=== PATIENT | male | born 1975 | race Caucasian/White ===

== ENCOUNTER 2018-11-23 15:00 | Inpatient (IN) | payer OTHER, SELFPAY ==
[2018-11-23] MEDS ORDERED: Ondansetron ODT 4 MG TAB PO PRN (22:19)
[2018-11-23] MEDS ORDERED: Ondansetron PF 4 MG/2 ML Vial IVP PRN (22:19)
[2018-11-23] MEDS ORDERED: Acetaminophen 325 MG TAB PO PRN (22:19)
[2018-11-23] MEDS ORDERED: Acetaminophen 650 MG Suppository PR PRN (22:19)
--- NOTE | 2018-11-23 23:20 | ULT ---
EXAM: Right lower extremity venous ultrasound HISTORY: Right lower extremity pain and edema for one week COMPARISON: None TECHNIQUE: Multiplanar grayscale and color Doppler images were obtained in a right lower extremity ve nous ultrasound. Spectral analysis of the Doppler waveforms were performed. FINDINGS: The common femoral vein, profunda femoral vein, superficial femoral vein, and popliteal vei n are normal in appearance without visible thrombus. These vessels demonstrate normal compression, flow, and augmentation. The posterior tibial vein and greater saphenous vein are patent without evidence of thrombus. Multiple prominent lymph nodes are seen in the right inguinal region. IMPRESSION: No evidence of DVT.
[2018-11-23] MEDS: Ketorolac Tromethamine 30 MG/ML VIAL IVP PRN (23:24)
[2018-11-23 23:38] VITALS: BMI 33.7
[2018-11-24] MEDS ORDERED: Morphine 2 MG/ML SYRINGE SLOW IVP PRN (00:07)
[2018-11-24] MEDS ORDERED: cefTRIAXone\\ROCEPHIN 1 GM in Sodium Chloride 0.9% 100 ML IVPB SCH (02:00)
--- NOTE | 2018-11-24 02:09 | HP ---
PRIMARY CARE PHYSICIAN: The patient is in detention. CODE STATUS: Full code. TIME OF EVALUATION: 10:25 p.m. CHIEF COMPLAINT: Right leg redness. HISTORY OF PRESENT ILLNESS: This is a 43-year-old male patient. The patient is in detention, came to the hospital after having been transferred from . The patient has right lower extremity redness that is severe, has been getting worse for the past week with decreased range of motion and some blisters. The symptoms have been gradually getting worse. REVIEW OF SYSTEMS: All other systems were reviewed and negative except for the findings mentioned above. PAST MEDICAL HISTORY: Reportedly negative. PAST SURGICAL HISTORY: No significant major surgeries related except for the left shoulder surgery. FAMILY HISTORY: Reviewed and noncontributory for current presentation. PHYSICAL EXAMINATION: VITAL SIGNS: On presentation; the patient had heart rate of 99, respiratory rate was 20, blood pressure 121/74, temperature 99.7, and pain 10/10. GENERAL APPEARANCE: The patient is alert and oriented, not in acute distress. HEENT: Eyes, normal conjunctivae. Moist oral mucosa. Anicteric. No JVD. RESPIRATORY: Bilateral air entry. No rales. No wheezes. Symmetric expansion. CARDIOVASCULAR: Normal rate. Regular rhythm. No murmurs. No gallop. No edema. ABDOMEN: Soft. Normal bowel sounds. MUSCULOSKELETAL: Baseline range of motion and strength except for the right lower extremity. The patient has significant redness, tumefaction, decreasing range of motion due to pain, and increasing local temperature. NEURO: No evidence of any new focal weakness. Cranial nerves seem to be intact. PSYCH: The patient is in good mood. No anxiety. Optimal judgment. DIAGNOSTIC DATA: DVT study was done. There is no DVT in the right lower extremity. LABORATORY DATA: The labs were done prior to transfer, but the records sent , so this will need to be followed. We will repeat his labs here in the hospital. ASSESSMENT AND PLAN: The patient was placed in the hospital with following medical problems; 1. Right lower extremity cellulitis and has significant formation of blisters in the area with significant local symptoms, decreased range of motion, redness, and tumefaction. The patient has been started on broad-spectrum antibiotics including coverage for gram negative anaerobes and gram positive. Culture has been sent, we will follow up cultures. We will monitor. If not improving, might need Dr. Morgan for assistance with outpatient. As per sign-out report, the patient has CAT scan done prior to transfer that showed no specific deep tissue infection as of now. 2. Severe pain, needing opioid medication for optimal control. This placed the patient at high risk for complication for treatment. 3. Deep venous thrombosis prophylaxis. Job ID: [id number]
[2018-11-24] MEDS ORDERED: HYDROcodone/Acetaminophen 5/325 mg Tablet PO PRN (02:23)
[2018-11-24] MEDS: Clindamycin/D5W 600 MG in Premix Bag 1 BAG IVPB SCH ×4 (02:49→21:26)
[2018-11-24] MEDS: HYDROcodone/Acetaminophen 5/325 mg Tablet PO PRN ×6 (03:07→23:51)
[2018-11-24 04:46] LABS: #Basophils 0.1 thou/uL (0.0-0.2); #Eosinphils 0.5 thou/uL (0.0-0.7); #Lymphocytes 3.1 thou/uL (1.20-3.40); #Monocytes 2.1 thou/uL (0.11-0.59); #Neutrophils 9.7 thou/uL (1.40-6.50); %Basophils 0.8 % (0.0-1.0); %Monocytes 13.5 % (0.0-10.0); %Neutrophils 62.7 % (42.0-75.0); Hemoglobin 11.8 g/dL (14.0-18.0); Mean Corpuscular HGB CONC 34.4 g/dL (32.0-36.0); Mean Corpuscular Hemoglobin 32.3 pg (27.0-31.0); Mean Corpuscular Volume 93.9 fL (78.0-98.0); Mean Platelet Volume 6.2 fL (7.4-10.4); Platelet Count 312 thou/uL (130-400); RBC Distribution Width 12.1 % (11.5-14.5); Red Blood Cell (RBC) Count 3.63 mill/uL (4.70-6.10); White Blood Cell (WBC) Count 15.5 thou/uL (4.8-10.8)
[2018-11-24 05:05] LABS: Anion Gap 13 mmol/L (10-20); BUN (Urea Nitrogen) 18 mg/dL (8.9-20.6); Calc. Creatinine Clearance 132 mL/min (70-130); Calcium 8.9 mg/dL (7.8-10.44); Carbon Dioxide 25 mmol/L (22-29); Chloride 103 mmol/L (98-107); Estimated GFR-MDRD 83; Glucose 102 mg/dL (70-105); Potassium 4.4 mmol/L (3.5-5.1); Sodium 137 mmol/L (136-145)
[2018-11-24] MEDS: Vancomycin HCl 1.5 GM in Sodium Chloride 0.9% 250 ML 300 ML IVPB SCH ×2 (05:15→16:27)
[2018-11-24] MEDS ORDERED: Piperacillin/Tazobactam 4.5 GM in Sodium Chloride 0.9% 100 ML IVPB SCH (06:00)
[2018-11-24] MEDS ORDERED: Clindamycin/D5W 600 MG in Premix Bag 1 BAG IVPB SCH (06:00)
[2018-11-24] MEDS: Enoxaparin Sodium 40 MG/0.4 ML SYRINGE SC SCH (08:15)
[2018-11-24] MEDS ORDERED: Vancomycin HCl 1 GM in Premix Bag 1 BAG IVPB SCH (09:00)
--- NOTE | 2018-11-24 14:35 | PDOC.HOSPP ---
- Subjective Encounter Date: 11/24/18 Encounter Time: 14:15 Subjective: f/u for RLE cellulitis on Vanc/Rocephin/Clindamycin with RLE pain and swelling. No prior hx of similar events. No fever or chills. Receiving Morphine Sulfate, Toradol and [place]. - Objective Vital Signs & Weight: Vital Signs (12 hours) Temp Pulse Resp BP Pulse Ox 11/24/18 10:51 98.1 F 72 14 102/64 95 11/24/18 07:26 98.2 F 78 16 106/62 95 11/24/18 03:10 97.8 F 70 16 101/65 94 L Weight Weight 208 lb 14.4 oz I&O: 11/23/18 11/24/18 11/25/18 06:59 06:59 06:59 Intake Total 950 Output Total 425 Balance 525 Result Diagrams: 11/24/18 04:28 11/24/18 04:28 Radiology Reviewed by me: Yes (RLE doppler - negative for DVT) Hospitalist ROS - Medication Medications: Active Medications Generic Name Dose Route Start Last Admin Trade Name Freq PRN Reason Stop Dose Admin Hydrocodone Bitart/Acetaminophen 2 tab 11/24/18 02:24 11/24/18 12:19 [place] 5/325 PO 2 tab Q4H PRN Administration Moderate to Severe Pain (6-10) Enoxaparin Sodium 40 mg 11/24/18 09:00 11/24/18 08:15 Lovenox SC 40 mg 0900 PAYAL Administration Vancomycin HCl 1.5 gm/ Sodium 300 mls @ 200 mls/hr 11/24/18 04:00 11/24/18 05 :15 Chloride IVPB 300 mls 0400,1600 PAYAL Administration Clindamycin Phosphate/Dextrose 50 mls @ 100 mls/hr 11/24/18 02:00 11/24/18 10 :11 600 mg/ Device IVPB 50 mls 0200,1000,1800 PAYAL Administration Ketorolac Tromethamine 30 mg 11/23/18 22:48 11/23/18 23:24 Toradol IVP 11/28/18 22:49 30 mg Q6H PRN Administration Pain - Exam General Appearance: NAD, awake alert Eye: PERRL, anicteric sclera ENT: normocephalic atraumatic, no oropharyngeal lesions Neck: supple, symmetric, no JVD, no thyromegaly, no lymphadenopathy Heart: RRR, no murmur, no gallops, no rubs, normal peripheral pulses Respiratory: CTAB, no wheezes, no rales, no ronchi, normal chest expansion Gastrointestinal: soft, non-tender, non-distended, normal bowel sounds, no palpable masses Extremities - other findings: RLE erythema from groin to ankle, deep erythema proximal calf and popliteal Skin - other findings: blistering and skin changes noted on calf Neurological: cranial nerve grossly intact, no focal deficits, no new deficit Musculoskeletal: normal tone, normal strength Psychiatric: normal affect, A&O x 3 Hosp A/P (1) Cellulitis of right lower extremity Code(s): L03.115 - CELLULITIS OF RIGHT LOWER LIMB Status: Acute Plan: Continue Clindamycin/Rocephin/Vancomycin, serial exams, consider surgical evaluation (2) Normocytic anemia Code(s): D64.9 - ANEMIA, UNSPECIFIED Status: Acute - Plan continue antibiotics, PT/OT, [employer], out of bed/ambulate Stable currently Continue Rocephin/Vancomycin/Clindamycin Increase Morphine Sulfate 4mg IV q3h prn Continue Toradol 30mg IV q6h Consult ID for any further recommendations AM lab: BMP, CBC
[2018-11-24] MEDS: Senokot S 8.6-50 MG TAB PO SCH (20:51)
[2018-11-24] MEDS: Morphine 4 MG/ML VIAL SLOW IVP PRN (21:24)
[2018-11-25] MEDS: Morphine 4 MG/ML VIAL SLOW IVP PRN ×4 (00:49→20:30)
--- NOTE | 2018-11-25 00:59 | CON ---
DATE OF CONSULTATION: 11/24/2018 REASON FOR CONSULTATION: Cellulitis. HISTORY OF PRESENT ILLNESS: A 43-year-old first visit to this hospital, who is an inmate at [facility] with history of chronic hepatitis C, not yet treated and new onset of what he describes is little pimples that he scratches. He developed recently progressively worsening inflammatory process in right lower extremity, which started right close to the popliteal fossa, right side and extended to the thigh and the calf skin area. He was treated for 2 days in [place] and was transferred over here. He is on broad-spectrum coverage and still quite inflamed and painful. Some headaches. No visual symptoms, sore throat, odynophagia, or dysphagia. No cough or sputum production. No chest pain. No abdominal pain. No genitourinary symptoms. No diarrhea. PAST MEDICAL HISTORY: Chronic hepatitis C, not yet treated. PAST SURGICAL HISTORY: Left shoulder arthroscopy. FAMILY HISTORY: Noncontributory. ALLERGIES: PENICILLINS WITH RASH. SOCIAL HISTORY: He is an inmate at [facility] and has a history of smoking in the past. Never used drugs intravenously reportedly. PHYSICAL EXAMINATION: VITAL SIGNS: Temperature is within normal limits. BP 109/68, pulse 87, respirations 16, and O2 saturation 95. SKIN: Shows extensive area of erythema in a circumferential distribution extending from the proximal thigh all the way to the distal calf, right side. Most of the inflammatory process is centered around the popliteal fossa and calf region. There is early blistering and exfoliation of the area with a little bit of yellow exudate noted. No necrosis noted. No purulent exudate noted. No lymphadenopathy. He has multiple tattoos in upper and lower extremities. CHEST: Ocular movements conjugate. Oral cavity normal. Teeth in good shape. NECK: Supple. No jugular venous distention. LUNGS: Symmetric. Clear breath sounds. HEART: S1 and S2, regular rate. No S3 or S4. No murmurs. ABDOMEN: Soft, not distended or tender. No ascites. No bladder distention. No genital abnormalities. MUSCULOSKELETAL: No joint inflammatory activity. Pulses are 2+ in dorsalis pedis. NEUROLOGIC: Nonfocal. LABORATORY DATA: White cell count 15,000, hemoglobin 11, platelets 312. Chemistry was fairly normal. We have submitted a swab for culture from open lesions. He had a duplex ultrasound in lower extremities, which was negative. ASSESSMENT: Acute cellulitis right lower extremity with early blistering and history of chronic hepatitis C untreated. DISCUSSION: Most likely scenario is beta-hemolytic streptococcal cellulitis, group A, B, C or G. Staphylococcus aureus cellulitis including MRSA is not ruled out. GNR cellulitis is more frequent in pts with chronic liver disease but he does not appear to have cirrhosis. At this point, he is currently on Rocephin and vancomycin. We will add clindamycin and monitor clinical progress. Job ID: [id number] [facility]
[2018-11-25] MEDS: cefTRIAXone\\ROCEPHIN 2 GM in Sodium Chloride 0.9% 100 ML IVPB SCH (02:36)
[2018-11-25] MEDS: Ketorolac Tromethamine 30 MG/ML VIAL IVP PRN ×2 (02:46→20:28)
[2018-11-25 03:48] LABS: Band 18 % (5-11); Eosinophils 2 % (0-10); Hemoglobin 12.3 g/dL (14.0-18.0); Lymphocytes 13 % (21-51); MDiff Complete? YES; Mean Corpuscular Hemoglobin 31.8 pg (27.0-31.0); Mean Corpuscular Volume 93.5 fL (78.0-98.0); Metamyelocyte 4 % (0-0); Monocytes 10 % (0-10); Myelocyte 1 % (0-0); Neutrophil 52 % (42-75); Platelet Count 292 thou/uL (130-400); Platelet Morphology Comment Appears Adequate; Red Blood Cell (RBC) Count 3.86 mill/uL (4.70-6.10); White Blood Cell (WBC) Count 13.3 thou/uL (4.8-10.8)
[2018-11-25 03:54] LABS: Vancomycin, Trough 9.8 ug/mL
[2018-11-25 03:55] LABS: Anion Gap 12 mmol/L (10-20); BUN (Urea Nitrogen) 18 mg/dL (8.9-20.6); Calc. Creatinine Clearance 151 mL/min (70-130); Calcium 8.8 mg/dL (7.8-10.44); Carbon Dioxide 23 mmol/L (22-29); Chloride 104 mmol/L (98-107); Estimated GFR-MDRD Greater than 90; Glucose 96 mg/dL (70-105); Potassium 4.1 mmol/L (3.5-5.1); Sodium 135 mmol/L (136-145)
[2018-11-25] MEDS: Clindamycin/D5W 600 MG in Premix Bag 1 BAG IVPB SCH ×4 (03:57→23:02)
[2018-11-25] MEDS: HYDROcodone/Acetaminophen 5/325 mg Tablet PO PRN ×5 (04:07→20:24)
[2018-11-25] MEDS: Vancomycin HCl 1.5 GM in Sodium Chloride 0.9% 250 ML 300 ML IVPB SCH ×5 (04:17→20:31)
[2018-11-25] MEDS: Senokot S 8.6-50 MG TAB PO SCH ×2 (08:47→20:23)
[2018-11-25] MEDS: Enoxaparin Sodium 40 MG/0.4 ML SYRINGE SC SCH (08:47)
[2018-11-25] MEDS ORDERED: Clindamycin/D5W 600 mg/50 ml Premix Bag ONE (09:22)
--- NOTE | 2018-11-25 16:59 | PDOC.HOSPP ---
- Subjective Encounter Date: 11/25/18 Encounter Time: 16:35 Subjective: f/u RLE cellulitis on Rocephin/Vancomycin/Clindamycin. Feels a little better overall but still sensitive skin behind the knee. - Objective Vital Signs & Weight: Vital Signs (12 hours) Temp Pulse Resp BP Pulse Ox 11/25/18 15:34 99.4 F 100 18 111/70 95 11/25/18 11:28 98.3 F 80 20 117/77 92 L 11/25/18 07:19 98.2 F 77 16 113/71 92 L Weight Weight 208 lb 14.4 oz I&O: 11/24/18 11/25/18 11/26/18 06:59 06:59 06:59 Intake Total 3350 Output Total 2625 Balance 725 Result Diagrams: 11/25/18 03:30 11/25/18 03:30 Additional Labs: Microbiology 11/24/18 17:05 Calf - Wound Bacterial Culture - Preliminary Staphylococcus species 11/23/18 22:45 Venous blood - Right Arm Blood Culture - Preliminary Specimen has been received and culture in progress. No Growth to date. 11/23/18 22:45 Venous blood - Left Arm Blood Culture - Preliminary Specimen has been received and culture in progress. No Growth to date. Laboratory Tests 11/24/18 11/25/18 04:28 03:30 WBC 15.5 H Vancomycin Trough 9.8 Hospitalist ROS - Medication Medications: Active Medications Generic Name Dose Route Start Last Admin Trade Name Freq PRN Reason Stop Dose Admin Hydrocodone Bitart/Acetaminophen 2 tab 11/24/18 02:24 11/25/18 16:05 [place] 5/325 PO 2 tab Q4H PRN Administration Moderate to Severe Pain (6-10) Enoxaparin Sodium 40 mg 11/24/18 09:00 11/25/18 08:47 Lovenox SC 40 mg 0900 PAYAL Administration Ceftriaxone Sodium 2 gm/ 100 mls @ 200 mls/hr 11/25/18 02:00 11/25/18 02:36 Sodium Chloride IVPB 100 mls 0200 PAYAL Administration Clindamycin Phosphate/Dextrose 50 mls @ 100 mls/hr 11/25/18 03:00 11/25/18 16 :04 600 mg/ Device IVPB 50 mls 0300,0900,1500,2100 PAYAL Administration Vancomycin HCl 1.5 gm/ Sodium 300 mls @ 200 mls/hr 11/25/18 04:00 11/25/18 12 :30 Chloride IVPB 300 mls 0400,1200,2000 PAYAL Administration Ketorolac Tromethamine 30 mg 11/23/18 22:48 11/25/18 02:46 Toradol IVP 11/28/18 22:49 30 mg Q6H PRN Administration Pain Morphine Sulfate 4 mg 11/24/18 14:29 11/25/18 16:04 Morphine SLOW IVP 4 mg Q3H PRN Administration Severe Pain (7-10) Senna/Docusate Sodium 1 tab 11/24/18 21:00 11/25/18 08:47 Senokot S PO 1 tab BID PAYAL Administration - Exam General Appearance: NAD, awake alert Eye: PERRL, anicteric sclera ENT: normocephalic atraumatic, no oropharyngeal lesions Neck: supple, symmetric, no JVD, no thyromegaly, no lymphadenopathy Heart: RRR, no murmur, no gallops, no rubs, normal peripheral pulses Respiratory: CTAB, no wheezes, no rales, no ronchi, normal chest expansion Gastrointestinal: soft, non-tender, non-distended, normal bowel sounds, no palpable masses, no hepatomegaly Extremities - other findings: RLE with decreased erythema around popliteal region, skin sloughing Skin: normal turgor Neurological: cranial nerve grossly intact, no focal deficits, no new deficit Musculoskeletal: normal tone Psychiatric: normal affect, A&O x 3 Hosp A/P (1) Cellulitis of right lower extremity Code(s): L03.115 - CELLULITIS OF RIGHT LOWER LIMB Status: Acute Plan: Improved, likely Staph spp, continue Rocephin/Clindamycin/Vancomycin, continue abx coverage, elevate RLE (2) Normocytic anemia Code(s): D64.9 - ANEMIA, UNSPECIFIED Status: Chronic Plan: Stable, no active blood loss - Plan continue antibiotics, out of bed/ambulate Stable currently Continue Rocephin/Vancomycin/Clindamycin Increase Morphine Sulfate 4mg IV q3h prn Continue Toradol 30mg IV q6h Appreciate ID recommendations Lidocaine gel topically Restoril 30mg po HS AM lab: CBC
[2018-11-25] MEDS: Lidocaine 4% Topical Sol 50 ML BOT TOP PRN (20:46)
[2018-11-25] MEDS: Temazepam 15 MG CAP PO PRN (23:01)
[2018-11-26] MEDS: Morphine 4 MG/ML VIAL SLOW IVP PRN ×4 (01:47→22:00)
[2018-11-26] MEDS: HYDROcodone/Acetaminophen 5/325 mg Tablet PO PRN ×5 (01:50→23:27)
[2018-11-26] MEDS: cefTRIAXone\\ROCEPHIN 2 GM in Sodium Chloride 0.9% 100 ML IVPB SCH (02:04)
[2018-11-26] MEDS: Ketorolac Tromethamine 30 MG/ML VIAL IVP PRN ×3 (02:07→20:15)
[2018-11-26] MEDS: Clindamycin/D5W 600 MG in Premix Bag 1 BAG IVPB SCH ×4 (02:51→21:50)
[2018-11-26 04:12] LABS: Vancomycin, Trough 14.8 ug/mL
[2018-11-26 04:25] LABS: Band 1 % (5-11); Eosinophils 2 % (0-10); Hypochromia SLIGHT = 6-15 cells (100X) (0-5/hpf); Lymphocytes 18 % (21-51); MDiff Complete? YES; Mean Corpuscular HGB CONC 34.8 g/dL (32.0-36.0); Mean Corpuscular Hemoglobin 32.4 pg (27.0-31.0); Mean Corpuscular Volume 93.2 fL (78.0-98.0); Monocytes 5 % (0-10); Neutrophil 74 % (42-75); Platelet Count 312 thou/uL (130-400); Platelet Morphology Comment Appears Adequate; RBC Distribution Width 12.1 % (11.5-14.5); Red Blood Cell (RBC) Count 3.71 mill/uL (4.70-6.10); White Blood Cell (WBC) Count 14.6 thou/uL (4.8-10.8)
[2018-11-26] MEDS: Vancomycin HCl 1.5 GM in Sodium Chloride 0.9% 250 ML 300 ML IVPB SCH ×4 (04:58→20:00)
[2018-11-26] MEDS ORDERED: Diabetic Tussin 200 MG/10 ML UDCUP PO PRN (08:36)
[2018-11-26] MEDS ORDERED: hydrALAZINE 20 MG/ML VIAL SLOW IVP PRN (08:36)
[2018-11-26] MEDS ORDERED: Sodium Chloride 0.65% Nasal 44 ML BOT EA NARE PRN (08:36)
[2018-11-26] MEDS ORDERED: Loratadine 10 MG TAB PO PRN (08:36)
[2018-11-26] MEDS ORDERED: Cepastat Lozenges 1 LOZ PO PRN (08:36)
[2018-11-26] MEDS ORDERED: Bisacodyl 10 MG SUPP PR PRN (08:36)
[2018-11-26] MEDS ORDERED: Loperamide HCl 2 MG CAP PO PRN (08:36)
[2018-11-26] MEDS ORDERED: Artificial Tears 18 DROP/0.9 ML EA EYE PRN (08:36)
[2018-11-26] MEDS: Enoxaparin Sodium 40 MG/0.4 ML SYRINGE SC SCH (08:51)
[2018-11-26] MEDS: Senokot S 8.6-50 MG TAB PO SCH ×2 (08:51→20:00)
--- NOTE | 2018-11-26 10:46 | PDOC.HOSPP ---
- Subjective Encounter Date: 11/26/18 Encounter Time: 07:50 Subjective: pt has increased swelling and pus drainage, has intense pain. Patient seen and examined. No new complaints. No overnight events - Objective Vital Signs & Weight: Vital Signs (12 hours) Temp Pulse Resp BP Pulse Ox 11/26/18 07:32 98.3 F 74 16 118/79 95 11/26/18 03:16 99.0 F 82 16 119/72 92 L 11/25/18 23:18 98.6 F 80 16 118/75 93 L Weight Weight 208 lb 14.4 oz I&O: 11/25/18 11/26/18 11/27/18 06:59 06:59 06:59 Intake Total 3350 3260 Output Total 2625 3200 Balance 725 60 Result Diagrams: 11/26/18 03:47 11/25/18 03:30 Hospitalist ROS - Review of Systems Constitutional: denies: fever, chills, sweats, weakness, malaise, other ENT: denies: ear pain, ear discharge, nose pain, nose discharge, nose congestion , mouth pain, mouth swelling, throat pain, throat swelling, other Respiratory: denies: cough, dry, shortness of breath, hemoptysis, SOB with excertion, pleuritic pain, sputum, wheezing, other Cardiovascular: denies: chest pain, palpitations, orthopnea, paroxysmal noc. dyspnea, edema, light headedness, other Gastrointestinal: denies: nausea, vomiting, abdominal pain, diarrhea, constipation, melena, hematochezia, other Genitourinary: denies: dysuria, frequency, incontinence, hematuria, retention, other Musculoskeletal: reports: leg pain. denies: neck pain, shoulder pain, arm pain , back pain, hand pain, foot pain, other - Medication Medications: Active Medications Generic Name Dose Route Start Last Admin Trade Name Freq PRN Reason Stop Dose Admin Hydrocodone Bitart/Acetaminophen 2 tab 11/24/18 02:24 11/26/18 08:52 [place] 5/325 PO 2 tab Q4H PRN Administration Moderate to Severe Pain (6-10) Enoxaparin Sodium 40 mg 11/24/18 09:00 11/26/18 08:51 Lovenox SC 40 mg 0900 PAYAL Administration Clindamycin Phosphate/Dextrose 50 mls @ 100 mls/hr 11/25/18 03:00 11/26/18 08 :51 600 mg/ Device IVPB 50 mls 0300,0900,1500,2100 PAYAL Administration Vancomycin HCl 1.5 gm/ Sodium 300 mls @ 200 mls/hr 11/25/18 04:00 11/26/18 04 :59 Chloride IVPB Not Given 0400,1200,2000 PAYAL Ketorolac Tromethamine 30 mg 11/23/18 22:48 11/26/18 02:07 Toradol IVP 11/28/18 22:49 30 mg Q6H PRN Administration Pain Lidocaine HCl 5 ml 11/25/18 17:02 11/25/18 20:46 Xylocaine 4% Topical Brinda TOP 1 applic TID PRN Administration Moderate to Severe Pain (6-10) Morphine Sulfate 4 mg 11/24/18 14:29 11/26/18 08:53 Morphine SLOW IVP 4 mg Q3H PRN Administration Severe Pain (7-10) Senna/Docusate Sodium 1 tab 11/24/18 21:00 11/26/18 08:51 Senokot S PO 1 tab BID PAYAL Administration Temazepam 30 mg 11/25/18 17:02 11/25/18 23:01 Restoril PO 30 mg HSPRN PRN Administration Insomnia - Exam General Appearance: NAD, awake alert Eye: PERRL, anicteric sclera ENT: normocephalic atraumatic, no oropharyngeal lesions Neck: supple, symmetric, no JVD, no thyromegaly Heart: RRR, no murmur, no gallops, no rubs, normal peripheral pulses Respiratory: CTAB, no wheezes, no rales, no ronchi Gastrointestinal: soft, non-tender, non-distended, normal bowel sounds, no palpable masses Extremities - other findings: right leg cellulitis with pus drainage, more tender and warm Skin: normal turgor, no lesions Neurological: cranial nerve grossly intact, normal sensation to touch, no weakness Musculoskeletal: normal tone, normal strength Psychiatric: normal affect, normal behavior Hosp A/P (1) Sepsis Code(s): A41.9 - SEPSIS, UNSPECIFIED ORGANISM Status: Acute Qualifiers: Sepsis type: methicillin resistant Staphylococcus aureus Severe sepsis shock status: without septic shock (2) Cellulitis of right lower extremity Code(s): L03.115 - CELLULITIS OF RIGHT LOWER LIMB Status: Acute (3) Normocytic anemia Code(s): D64.9 - ANEMIA, UNSPECIFIED Status: Chronic (4) Obesity (BMI 30.0-34.9) Code(s): E66.9 - OBESITY, UNSPECIFIED Status: Chronic (5) H/O chronic hepatitis Code(s): Z87.19 - PERSONAL HISTORY OF OTHER DISEASES OF THE DIGESTIVE SYSTEM Status: Chronic Plan: hepatitis c - Plan old records reviewed/req, continue antibiotics 11/26/- DC rocephin given MRSA infection, clindamycin also resistant but will defer that to ID, continue vancomycin, today will consult ortho for evaluation for I & D, pain control, will repeat labs tomorrow
--- NOTE | 2018-11-26 12:02 | CON ---
DATE OF CONSULTATION: 11/26/2018 REQUESTING PHYSICIAN: Dr. Gilberto Gorman. HISTORY OF PRESENT ILLNESS: The patient is a 43-year-old inmate, who has a recent history of progressive redness, swelling, and now some purulent drainage from his right proximal calf and popliteal fossa. It is unclear what the precipitating event was. The patient described some "pimples" that he was scratching that may have started this episode. The patient was initially treated for 2 days in [place] and then subsequently transferred to [facility] on November 23, 2018. He was found to have a very severe cellulitis, which has continued to produce calf swelling, pain, and now blistering with some drainage. With this worsening condition, Orthopedic consultation requested. The patient has been on Rocephin, vancomycin, and clindamycin under the care of Dr. Morgan. He denies redness or pain in any other extremity. PAST MEDICAL HISTORY: Remarkable for hepatitis C, untreated. PAST SURGICAL HISTORY: Left shoulder open cuff repair. MEDICATIONS: None prior to hospital admission. ALLERGIES: PENICILLIN, WHICH DOES GIVE A RASH, ALTHOUGH HE IS TOLERATING THE ROCEPHIN. SOCIAL HISTORY: The patient is an inmate. He has a history of smoking in the past. Denies IV drug use. FAMILY HISTORY: Noncontributory. REVIEW OF SYSTEMS: The patient does have recent history of fevers and chills. Denies chest pain or shortness of breath. Denies numbness or tingling in the lower extremities. PHYSICAL EXAMINATION: VITAL SIGNS: He was found to have a temperature of 98.3, currently with a heart rate of 74, respiratory rate of 16, and blood pressure of 118/79. HEENT: Atraumatic and normocephalic. HEART: Shows regular rate and rhythm without murmur. LUNGS: Clear to auscultation bilaterally. CHEST: Chest wall is nontender. EXTREMITIES: Remarkable for a left upper extremity with a superior skin incision from his prior shoulder surgery. Otherwise, upper extremities atraumatic. The left lower extremity also is atraumatic. The right lower extremity remarkable for significant swelling within the calf, although he does not have pain with passive stretch of the toes. The swelling is most localized in the proximal calf posteriorly and the popliteal fossa. He was found to have blistering with some purulent material within these blisters at the proximal calf and popliteal fossa. This erythema does extend up the posterior thigh towards the buttock, although his area of maximal swelling is proximal calf. Any type of palpation creates a great deal of pain and he does have erythema in addition to the swelling. LABORATORY DATA: He was found to have a white count of 14.6, a hematocrit of 43.6, and 312,000 platelets. A preliminary culture does show MRSA positive. IMAGING STUDIES: The patient has had a prior duplex ultrasound that was negative by report. ASSESSMENT: A 43-year-old gentleman with now 5-day history of increasing right calf pain, swelling, and now with suspected abscess. PLAN: At this time, I have discussed with the patient that I would like to take him to the operating room and proceed with an incision and drainage procedure. Before surgery, I would like to obtain x-rays of the lower leg, femur and knee to see if there is any evidence of gas within the soft tissues that might give an indication as to the full extent of this abscess cavity. Today, we did discuss risks and benefits of surgery. Risks included, but are not limited to bleeding, infection, nerve injury, need for additional surgery, loss of limb or life. The patient appears to understand, does wish to proceed with surgery. Job ID: [id number]
--- NOTE | 2018-11-26 12:16 | RAD ---
EXAM: XR Femur Rt 2 View STANDARD PROVIDED CLINICAL HISTORY: Abscess FINDINGS: There is no evidence for fracture or other acute osseous abnormality. Alignment appears anatomic. Denise nt spaces appear preserved. No evidence for radiopaque foreign body. IMPRESSION: No evidence for an acute osseous abnormality. If there is persistent clinical concern, conservative m anagement and follow-up imaging advised.
--- NOTE | 2018-11-26 12:17 | RAD ---
Exam: XR Tib Fib Rt Leg 2 View HISTORY: Abscess COMPARISON: None FINDINGS: There is subcutaneous soft tissue swelling at the level the proximal calf greater posteriorly with campos bcutaneous soft tissue swelling also present involving the distal right lower extremity at the ankle.. There is an osseous excrescence seen involving the posterior medial aspect of the proximal right fibu la likely due to an osteochondroma. No acute fracture or dislocation is seen. There is no osseous destruction identified. No other osseous abnormality. IMPRESSION: 1. Subcutaneous soft tissue swelling at the level of the calf proximally as well as at the level of t he distal right lower extremity and at the ankle. No osseous destruction is seen. 2. Osteochondroma involving the proximal right fibula. 3. No acute osseous abnormality.
--- NOTE | 2018-11-26 12:17 | RAD ---
EXAM: XR Knee Rt 2 View PROVIDED CLINICAL HISTORY: Abscess FINDINGS: There is no evidence for fracture or other acute osseous abnormality. Alignment appears anatomic. Denise nt spaces appear preserved. No evidence for radiopaque foreign body, significant knee joint capsular distention or soft tissue gas. Proximal fibular osteochondroma noted. IMPRESSION: No evidence for an acute osseous abnormality. If there is persistent clinical concern, conservative m anagement and follow-up imaging advised.
[2018-11-26] MEDS ORDERED: Neomycin-Polymyxin 1 ML AMP ONE ×2 (13:59→14:00)
[2018-11-26] MEDS ORDERED: Fentanyl 100 MCG/2 ML VIAL ONE ×5 (14:19→17:14)
[2018-11-26] MEDS ORDERED: Clindamycin/D5W 600 mg/50 ml Premix Bag ONE (14:20)
[2018-11-26] MEDS ORDERED: Famotidine/PF 20 mg/2ml Vial ONE (14:49)
[2018-11-26] MEDS ORDERED: Metoclopramide HCl 10 MG/2 ML VIAL ONE (15:52)
[2018-11-26] MEDS ORDERED: Lidocaine 1% PF 5 ML VIAL ONE (15:52)
[2018-11-26] MEDS ORDERED: Ondansetron PF 4 MG/2 ML Vial ONE (15:52)
[2018-11-26] MEDS ORDERED: Dexamethasone 20 MG/5 ML VIAL ONE (15:52)
[2018-11-26] MEDS ORDERED: PROPOFOL 200 MG/20 ML VIAL ONE (15:52)
[2018-11-26] MEDS ORDERED: Rocuronium Bromide 10 MG/ML (10ML VIAL) ONE (15:52)
[2018-11-26] MEDS ORDERED: Ketorolac Tromethamine 30 MG/ML VIAL ONE (15:52)
[2018-11-26] MEDS ORDERED: Glycopyrrolate 0.2 MG/ML 5 ML SYRINGE ONE (15:52)
[2018-11-26] MEDS ORDERED: HYDROmorphone 2 MG/ML VIAL SLOW IVP PRN (16:35)
[2018-11-26] MEDS ORDERED: PACU-Morphine 4MG/ML VIAL SLOW IVP PRN (16:35)
[2018-11-26] MEDS ORDERED: Promethazine HCl 25 MG/ML VIAL IM PRN (16:35)
[2018-11-26] MEDS ORDERED: Ondansetron HCl/PF 4 MG/2 ML Vial IVP PRN (16:35)
[2018-11-26] MEDS ORDERED: Promethazine HCl 25 MG/ML VIAL SLOW IVP PRN (16:35)
[2018-11-26] MEDS: Temazepam 15 MG CAP PO PRN (21:50)
[2018-11-27 03:20] LABS: #Eosinphils 0.1 thou/uL (0.0-0.7); #Lymphocytes 1.4 thou/uL (1.20-3.40); #Monocytes 0.7 thou/uL (0.11-0.59); #Neutrophils 13.1 thou/uL (1.40-6.50); %Basophils 0.2 % (0.0-1.0); %Eosinophils 0.5 % (0.0-10.0); %Monocytes 4.8 % (0.0-10.0); %Neutrophils 85.6 % (42.0-75.0); Hemoglobin 10.7 g/dL (14.0-18.0); Mean Corpuscular HGB CONC 34.4 g/dL (32.0-36.0); Mean Corpuscular Hemoglobin 32.3 pg (27.0-31.0); Mean Corpuscular Volume 93.8 fL (78.0-98.0); Mean Platelet Volume 6.1 fL (7.4-10.4); Platelet Count 260 thou/uL (130-400); White Blood Cell (WBC) Count 15.3 thou/uL (4.8-10.8)
[2018-11-27] MEDS: HYDROcodone/Acetaminophen 5/325 mg Tablet PO PRN ×5 (03:22→22:59)
[2018-11-27] MEDS: Clindamycin/D5W 600 MG in Premix Bag 1 BAG IVPB SCH ×3 (03:26→16:50)
[2018-11-27 04:02] LABS: ALT (SGPT) 23 U/L (8-55); AST (SGOT) 16 U/L (5-34); Alkaline Phosphatase 80 U/L (40-150); Anion Gap 12 mmol/L (10-20); BUN (Urea Nitrogen) 16 mg/dL (8.9-20.6); Bilirubin, Total 0.2 mg/dL (0.2-1.2); CRP (Inflammatory) 14.75 mg/dL (= or < 0.5); Calc. Creatinine Clearance 146 mL/min (70-130); Calcium 8.8 mg/dL (7.8-10.44); Carbon Dioxide 25 mmol/L (22-29); Chloride 104 mmol/L (98-107); Estimated GFR-MDRD Greater than 90; Globulin 3.3 g/dL (2.4-3.5); Glucose 152 mg/dL (70-105); Potassium 4.5 mmol/L (3.5-5.1); Protein, Total 6.3 g/dL (6.0-8.3); Sodium 136 mmol/L (136-145)
[2018-11-27 04:23] LABS: HBCM Index 0.09 S/CO (0-0.79); HBSAg Index 0.19 S/CO (0-0.99); Hep A IgM AB Non-Reactive (NonReactive); Hep A IgM S/CO 0.11 S/CO (0-0.79); Hep B Surf Ag Non-Reactive S/CO (NonReactive); Hepatitis B Core IgM Abs Non-Reactive (NonReactive)
[2018-11-27 04:24] LABS: Hep C IgG Ab Reflex HepC Qnt (NonReactive); Hep C Index 16.91 S/CO (0-0.79)
[2018-11-27] MEDS: Vancomycin HCl 1.75 GM in Sodium Chloride 0.9% 500 ML IVPB SCH ×3 (04:59→20:52)
--- NOTE | 2018-11-27 09:59 | PDOC.HOSPP ---
- Subjective Encounter Date: 11/27/18 Encounter Time: 08:10 Subjective: Patient seen and examined. No new complaints. No overnight events - Objective Vital Signs & Weight: Vital Signs (12 hours) Temp Pulse Resp BP Pulse Ox 11/27/18 03:00 98.5 F 60 20 113/69 96 11/26/18 23:00 98.6 F 65 20 100/61 92 L Weight Weight 208 lb 14.4 oz I&O: 11/26/18 11/27/18 11/28/18 06:59 06:59 06:59 Intake Total 3260 3900 Output Total 3200 4440 Balance 60 -540 Result Diagrams: 11/27/18 03:12 11/27/18 03:12 Hospitalist ROS - Review of Systems Eyes: denies: pain, vision change, conjunctivae inflammation, eyelid inflammation, redness, other ENT: denies: ear pain, ear discharge, nose pain, nose discharge, nose congestion , mouth pain, mouth swelling, throat pain, throat swelling, other Respiratory: denies: cough, dry, shortness of breath, hemoptysis, SOB with excertion, pleuritic pain, sputum, wheezing, other Cardiovascular: denies: chest pain, palpitations, orthopnea, paroxysmal noc. dyspnea, edema, light headedness, other Gastrointestinal: denies: nausea, vomiting, abdominal pain, diarrhea, constipation, melena, hematochezia, other Genitourinary: denies: dysuria, frequency, incontinence, hematuria, retention, other Musculoskeletal: reports: leg pain. denies: neck pain, shoulder pain, arm pain , back pain, hand pain, foot pain, other Skin: denies: rash, lesions, laurie, bruising, other - Medication Medications: Active Medications Generic Name Dose Route Start Last Admin Trade Name Freq PRN Reason Stop Dose Admin Hydrocodone Bitart/Acetaminophen 2 tab 11/24/18 02:24 11/27/18 03:22 [place] 5/325 PO 2 tab Q4H PRN Administration Moderate to Severe Pain (6-10) Enoxaparin Sodium 40 mg 11/24/18 09:00 11/26/18 08:51 Lovenox SC 40 mg 0900 PAYAL Administration Clindamycin Phosphate/Dextrose 50 mls @ 100 mls/hr 11/25/18 03:00 11/27/18 03 :26 600 mg/ Device IVPB 50 mls 0300,0900,1500,2100 PAYAL Administration Vancomycin HCl 1.75 gm/ Sodium 500 mls @ 250 mls/hr 11/27/18 04:00 11/27/18 04:59 Chloride IVPB 500 mls 0400,1200,2000 PAYAL Administration Ketorolac Tromethamine 30 mg 11/23/18 22:48 11/26/18 20:15 Toradol IVP 11/28/18 22:49 30 mg Q6H PRN Administration Pain Lidocaine HCl 5 ml 11/25/18 17:02 11/25/18 20:46 Xylocaine 4% Topical Brinda TOP 1 applic TID PRN Administration Moderate to Severe Pain (6-10) Morphine Sulfate 4 mg 11/24/18 14:29 11/26/18 22:00 Morphine SLOW IVP 4 mg Q3H PRN Administration Severe Pain (7-10) Senna/Docusate Sodium 1 tab 11/24/18 21:00 11/26/18 20:00 Senokot S PO 1 tab BID PAYAL Administration Temazepam 30 mg 11/25/18 17:02 11/26/18 21:50 Restoril PO 30 mg HSPRN PRN Administration Insomnia - Exam General Appearance: NAD, awake alert Eye: PERRL, anicteric sclera ENT: normocephalic atraumatic, no oropharyngeal lesions Neck: supple, symmetric, no JVD, no thyromegaly, no lymphadenopathy Heart: RRR, no murmur, no gallops, no rubs, normal peripheral pulses Respiratory: CTAB, no wheezes, no rales, no ronchi, normal chest expansion Gastrointestinal: soft, non-tender, non-distended, normal bowel sounds Extremities - other findings: right leg with dressing and drain+ Skin: normal turgor, no lesions, no rashes Neurological: normal sensation to touch, no weakness Musculoskeletal: normal tone, normal strength, no muscle wasting Psychiatric: normal affect, normal behavior, A&O x 3 Hosp A/P (1) Sepsis Code(s): A41.9 - SEPSIS, UNSPECIFIED ORGANISM Status: Acute Qualifiers: Sepsis type: methicillin resistant Staphylococcus aureus Severe sepsis shock status: without septic shock (2) Cellulitis of right lower extremity Code(s): L03.115 - CELLULITIS OF RIGHT LOWER LIMB Status: Acute (3) Normocytic anemia Code(s): D64.9 - ANEMIA, UNSPECIFIED Status: Chronic (4) Obesity (BMI 30.0-34.9) Code(s): E66.9 - OBESITY, UNSPECIFIED Status: Chronic (5) H/O chronic hepatitis Code(s): Z87.19 - PERSONAL HISTORY OF OTHER DISEASES OF THE DIGESTIVE SYSTEM Status: Chronic - Plan old records reviewed/req, continue antibiotics 11/26/ DC rocephin given MRSA infection, clindamycin also resistant but will defer that to ID, continue vancomycin, today will consult ortho for evaluation for I & D, pain control, will repeat labs tomorrow 11/27- s/p I & D yesterday, after that pt is doing well, his pain well controlled, continue vancomycin and clindamycin, he will need longer antibiotics , medication reviewed as above, symptomatic treatment, repeat labs tomorrow, wound care
[2018-11-27] MEDS: Enoxaparin Sodium 40 MG/0.4 ML SYRINGE SC SCH (10:01)
[2018-11-27] MEDS: Senokot S 8.6-50 MG TAB PO SCH ×2 (10:01→20:51)
--- NOTE | 2018-11-27 12:13 | OP ---
DATE OF PROCEDURE: 11/26/2018 PREOPERATIVE DIAGNOSIS: Right subcutaneous calf abscess. POSTOPERATIVE DIAGNOSIS: Right subcutaneous calf abscess. PROCEDURES PERFORMED: 1. Incision and drainage of right calf abscess. 2. Application of wound VAC by wound care team. ANESTHESIA: General. HOSPITAL MANAGER: Michael. TOURNIQUET TIME: Zero. ESTIMATED BLOOD LOSS: 200 mL. COMPLICATIONS: None. DRAINS: Wound VAC x1. SPECIMEN: Subcutaneous abscess fluid for Gram stain, culture, and sensitivity. OUTCOME: Decompression of right calf abscess. INDICATIONS FOR PROCEDURE: The patient is a 43-year-old inmate, who presents with a 5- to 6-day history of increasing right calf pain and swelling. He believes it started out as either a small spider bite or pimple, that he scratched and then subsequently developed some erythema and progressive swelling. He was initially seen and evaluated at [facility] and then transferred to [facility] due to worsening. Orthopedic consultation was requested, and the patient was found to have blistering of the skin with an obvious subcutaneous abscess, that had some mild drainage through what appears to be a very small puncture wound over the posterolateral aspect of the calf. I have discussed with the patient the proposed procedure including risks and benefits. He appears to understand and does wish to proceed. Written consent has been obtained. DESCRIPTION OF PROCEDURE: The patient was brought to the operating room and a time-out was performed followed by induction of general anesthesia. He was then positioned in a prone position, and a sterile prep and drape was performed of the right lower extremity. He was found to have a very swollen calf with erythema that extended from the ankle all the way up the posterior thigh toward the buttock. Palpation of the buttock and posterior thigh did not show any fluctuance. However, he was felt to have fluctuance at the level of the calf heading toward the popliteal fossa. Following the sterile prep and drape, the skin blistering was then unroofed and then a L-shaped incision was made starting at about the mid calf extending up to the medial aspect of the popliteal fossa and then starting to zigzag across the popliteal fossa. With this, a mildly odorous purulent material came up from the subcutaneous area. This was followed by some additional organized purulent material, that was debrided with a rongeur and curette. A finger was then swept through the abscess cavity, breaking down small septa, and once the cavity was felt to be fully decompressed, it was then irrigated with 5 L normal saline. It should be noted that prior to the irrigation, a swab of the purulent material was sent to the lab for Gram stain, culture, and sensitivity. Following the 5 L irrigation through the wound, the gastrocsoleus was still felt to be quite swollen, and after some debate, we opted to proceed with just a blunt dissection into the gastrocsoleus to see if there was a deeper intramuscular abscess and indeed there was not. As such, after debridement sharply of the skin edge that was mildly necrotic in subcutaneous tissue, the wound care team was brought in and a wound VAC was applied to this large cavity. The patient was then transferred to recovery room in stable condition. There were no complications. He tolerated the procedure well. Job ID: [id number]
[2018-11-27] MEDS: Morphine 4 MG/ML VIAL SLOW IVP PRN ×3 (13:05→23:01)
--- NOTE | 2018-11-27 17:05 | PRG ---
DATE OF SERVICE: 11/27/2018 SUBJECTIVE: Mr. Monterroso had I and D of an abscess in the popliteal fossa close to the calf region, and he is feeling better now. There is negative pressure dressing. He denies any headaches. No shortness of breath. No abdominal pain. OBJECTIVE: VITAL SIGNS: Showed a T-max 99.5, blood pressure 110/64, pulse 79, respirations 16, and O2 saturation 96. EXTREMITIES: The area of the inflammatory process is dressed with gauze and Bautista wrap. LUNGS: Clear. HEART: S1 and S2, regular rate. ABDOMEN: Soft, not distended. LABORATORY DATA: White cell count is at 15.3, hemoglobin 10.7, and platelets 260. Sodium 136, creatinine 0.89. Microbiology with MRSA from the original culture submitted from November 24. The current one shows gram-positive cocci in clusters. 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 ASSESSMENT AND DISCUSSION: Methicillin-resistant Staphylococcus aureus abscess with cellulitis, right lower extremity, status post incision and drainage. Discontinue Rocephin and clindamycin. Continue vancomycin. Eventual transition to oral regimen with rifampin and doxycycline or rifampin and minocycline for discharge planning. Job ID: [id number]
[2018-11-27] MEDS: Ketorolac Tromethamine 30 MG/ML VIAL IVP PRN (21:21)
[2018-11-27] MEDS: Temazepam 15 MG CAP PO PRN (23:00)
[2018-11-28] MEDS: Morphine 4 MG/ML VIAL SLOW IVP PRN ×5 (03:30→23:11)
[2018-11-28] MEDS: HYDROcodone/Acetaminophen 5/325 mg Tablet PO PRN ×5 (03:30→21:12)
[2018-11-28] MEDS: Vancomycin HCl 1.75 GM in Sodium Chloride 0.9% 500 ML IVPB SCH (03:30)
[2018-11-28] MEDS: Ketorolac Tromethamine 30 MG/ML VIAL IVP PRN (03:30)
[2018-11-28 05:24] LABS: Anion Gap 10 mmol/L (10-20); BUN (Urea Nitrogen) 17 mg/dL (8.9-20.6); Calc. Creatinine Clearance 151 mL/min (70-130); Calcium 8.8 mg/dL (7.8-10.44); Carbon Dioxide 30 mmol/L (22-29); Chloride 107 mmol/L (98-107); Estimated GFR-MDRD Greater than 90; Glucose 119 mg/dL (70-105); Potassium 4.5 mmol/L (3.5-5.1); Sodium 142 mmol/L (136-145); Vancomycin, Trough 22.2 ug/mL
[2018-11-28 06:43] LABS: #Basophils 0.1 thou/uL (0.0-0.2); #Eosinphils 0.4 thou/uL (0.0-0.7); #Lymphocytes 3.6 thou/uL (1.20-3.40); #Monocytes 0.7 thou/uL (0.11-0.59); #Neutrophils 7.2 thou/uL (1.40-6.50); %Basophils 0.5 % (0.0-1.0); %Lymphocytes 30.2 % (21.0-51.0); %Monocytes 6.1 % (0.0-10.0); %Neutrophils 60.2 % (42.0-75.0); Hemoglobin 10.1 g/dL (14.0-18.0); Mean Corpuscular HGB CONC 34.3 g/dL (32.0-36.0); Mean Corpuscular Volume 93.2 fL (78.0-98.0); Mean Platelet Volume 6.9 fL (7.4-10.4); Platelet Count 265 thou/uL (130-400); RBC Distribution Width 12.2 % (11.5-14.5); Red Blood Cell (RBC) Count 3.17 mill/uL (4.70-6.10)
[2018-11-28] MEDS: Enoxaparin Sodium 40 MG/0.4 ML SYRINGE SC SCH (08:31)
[2018-11-28] MEDS: Senokot S 8.6-50 MG TAB PO SCH ×2 (08:32→20:23)
[2018-11-28] MEDS ORDERED: hydrOXYzine Pamoate 25 mg Capsule PO PRN (10:20)
[2018-11-28] MEDS: Vancomycin HCl 1.5 GM in Sodium Chloride 0.9% 250 ML 300 ML IVPB SCH ×2 (12:10→20:22)
--- NOTE | 2018-11-28 13:51 | PDOC.HOSPP ---
- Subjective Encounter Date: 11/28/18 Encounter Time: 13:49 Subjective: Mr. Monterroso was seen today in follow-up of cellulitis of the right leg. He notes some pain in the leg, but it is alleviated with pain medication. - Objective Vital Signs & Weight: Vital Signs (12 hours) Temp Pulse Resp BP Pulse Ox 11/28/18 11:15 98.1 F 76 16 126/74 95 11/28/18 07:17 97.8 F 66 16 133/74 95 11/28/18 04:00 97.7 F 63 16 117/77 97 Weight Admit Weight 208 lb Weight 208 lb 14.4 oz I&O: 11/27/18 11/28/18 11/29/18 06:59 06:59 06:59 Intake Total 3900 3940 Output Total 4440 3650 Balance -540 290 Result Diagrams: 11/28/18 03:14 11/28/18 03:14 Hospitalist ROS - Medication Medications: Active Medications Generic Name Dose Route Start Last Admin Trade Name Freq PRN Reason Stop Dose Admin Hydrocodone Bitart/Acetaminophen 2 tab 11/24/18 02:24 11/28/18 12:15 [place] 5/325 PO 2 tab Q4H PRN Administration Moderate to Severe Pain (6-10) Enoxaparin Sodium 40 mg 11/24/18 09:00 11/28/18 08:31 Lovenox SC 40 mg 0900 PAYAL Administration Vancomycin HCl 1.5 gm/ Sodium 300 mls @ 200 mls/hr 11/28/18 12:00 11/28/18 12 :10 Chloride IVPB 300 mls 0400,1200,2000 PAYAL Administration Ketorolac Tromethamine 30 mg 11/23/18 22:48 11/28/18 03:30 Toradol IVP 11/28/18 22:49 30 mg Q6H PRN Administration Pain Lidocaine HCl 5 ml 11/25/18 17:02 11/25/18 20:46 Xylocaine 4% Topical Brinda TOP 1 applic TID PRN Administration Moderate to Severe Pain (6-10) Morphine Sulfate 4 mg 11/24/18 14:29 11/28/18 12:14 Morphine SLOW IVP 4 mg Q3H PRN Administration Severe Pain (7-10) Senna/Docusate Sodium 1 tab 11/24/18 21:00 11/28/18 08:32 Senokot S PO 1 tab BID PAYAL Administration Temazepam 30 mg 11/25/18 17:02 11/27/18 23:00 Restoril PO 30 mg HSPRN PRN Administration Insomnia - Exam Eye: PERRL Heart: RRR, no murmur, no gallops, no rubs, normal peripheral pulses Respiratory: CTAB, no wheezes, no rales, no ronchi, normal chest expansion Gastrointestinal: soft, non-tender, non-distended, normal bowel sounds, no palpable masses, no hepatomegaly, no splenomegaly Extremities: no cyanosis, no clubbing, 1+ LE edema (2+ pulses in both lower extremities) Neurological: no focal deficits Hosp A/P (1) Cellulitis of right lower extremity Code(s): L03.115 - CELLULITIS OF RIGHT LOWER LIMB Status: Acute (2) H/O chronic hepatitis Code(s): Z87.19 - PERSONAL HISTORY OF OTHER DISEASES OF THE DIGESTIVE SYSTEM Status: Chronic - Plan * Cellulitis of the right lower extremity- due to MRSA- continue Vancomycin * He has a wound vac in place * Chronic hepatitis C- stable- ? if this has been treated
--- NOTE | 2018-11-28 15:49 | PQF ---
CLINICAL DOCUMENTATION IMPROVEMENT CLARIFICATION FORM: ICD-10 Updated PLEASE DO AN ADDENDUM TO THE PROGRESS NOTE WITH ANY DOCUMENTATION UPDATES OR ADDITIONS AND CARRY THROUGH TO DC SUMMARY. THANK YOU. DATE: 11/28/18 ATTN: DR. SCHULER Please exercise your independent, professional judgment in responding to the clarification form. Clinical indicators are provided on the bottom of this form for your review Please check appropriate box(s): [ ] Excisional Debridement: [ ] Excised [ ] Cut away [ ] Other: Depth / layer: (deepest layer of debridement): [ ] Skin[ ] SubQ Tissue [ ] Fascia [ ] Muscle [ ] Tendon [ ] Bone Appearance of wound: (e.g., down to fresh bleeding tissue, etc.)___ Margins: (please specify): / x x Instruments used: [ ] Scissors [ ] Scalpel [ ] Curette [ ] Soft tissue clipper [ ] Other: [ ] Non-excisional Debridement: (Removal by flushing, brushing, chemical, or washing) Depth / layer: (deepest layer of debridement): [ ] Skin[ ] Subcutaneous [ ] Fascia [ ] Muscle [ ] Tendon [ ] Bone [ ] Incision and Drainage only (No Debridement): Depth:[ ] Skin [ ] Subcutaneous [ ] Fascia [ ] Muscle [ ] Tendon [ ] Bone [ ] Escharectomy [ ] Other procedure diagnosis [ ] Unable to determine For continuity of documentation, please document condition throughout progress notes and discharge summary. Thank You. CLINICAL INDICATORS - SIGNS / SYMPTOMS / LABS OP NOTE 10/27: "THIS WAS FOLLOWED BY SOME ADDITIONAL ORGANIZED PURULENT MATERIAL THAT WAS DEBRIDED WITH A RONGEUR AND CURETTE." " SUCH, AFTER DEBRIDEMENT SHARPLY OF THE SKIN EDGE THAT WAS MILDLY NECROTIC IN SUBCUTANEOUS TISSUE, THE WOUND CARE TEAM WAS BROUGHT IN AND A WOUND VAC WAS APPLIED TO THIS LARGE CAVITY." RISKS: RIGHT LOWER EXTREMITY ABSCESS TREATMENT: IV VANCOMYCIN (11/27-PRESENT) CULTURE OF WOUND SURGICAL DEBRIDEMENT SAP Corporate Development Intern Crystal Reports Winform Viewer(This form is maintained as a part of the permanent medical record) 2014 [employer] All Rights Reserved ABHILASH [email or web address] Office: [phone] TONSIL HOSPITALEffie
[2018-11-29] MEDS: Temazepam 15 MG CAP PO PRN (00:16)
[2018-11-29] MEDS: HYDROcodone/Acetaminophen 5/325 mg Tablet PO PRN ×5 (02:32→20:03)
[2018-11-29] MEDS: Vancomycin HCl 1.5 GM in Sodium Chloride 0.9% 250 ML 300 ML IVPB SCH ×2 (03:55→13:09)
[2018-11-29] MEDS: Morphine 4 MG/ML VIAL SLOW IVP PRN (03:55)
[2018-11-29 04:11] LABS: #Basophils 0.1 thou/uL (0.0-0.2); #Eosinphils 0.5 thou/uL (0.0-0.7); #Lymphocytes 2.7 thou/uL (1.20-3.40); #Monocytes 0.6 thou/uL (0.11-0.59); #Neutrophils 5.8 thou/uL (1.40-6.50); %Basophils 0.5 % (0.0-1.0); %Lymphocytes 27.9 % (21.0-51.0); %Monocytes 6.3 % (0.0-10.0); %Neutrophils 60.2 % (42.0-75.0); Hemoglobin 10.6 g/dL (14.0-18.0); Mean Corpuscular Hemoglobin 32.9 pg (27.0-31.0); Mean Corpuscular Volume 94.1 fL (78.0-98.0); Mean Platelet Volume 6.1 fL (7.4-10.4); Platelet Count 303 thou/uL (130-400); RBC Distribution Width 12.2 % (11.5-14.5); Red Blood Cell (RBC) Count 3.23 mill/uL (4.70-6.10); White Blood Cell (WBC) Count 9.7 thou/uL (4.8-10.8)
[2018-11-29 04:33] LABS: Anion Gap 11 mmol/L (10-20); BUN (Urea Nitrogen) 15 mg/dL (8.9-20.6); Calc. Creatinine Clearance 155 mL/min (70-130); Calcium 8.8 mg/dL (7.8-10.44); Carbon Dioxide 26 mmol/L (22-29); Chloride 105 mmol/L (98-107); Estimated GFR-MDRD Greater than 90; Glucose 104 mg/dL (70-105); Potassium 4.2 mmol/L (3.5-5.1); Sodium 138 mmol/L (136-145)
[2018-11-29] MEDS: Morphine 2 MG/ML SYRINGE SLOW IVP PRN ×2 (05:51→09:35)
[2018-11-29] MEDS: Enoxaparin Sodium 40 MG/0.4 ML SYRINGE SC SCH (09:35)
[2018-11-29] MEDS: Senokot S 8.6-50 MG TAB PO SCH ×2 (09:35→20:30)
[2018-11-29] MEDS: Lidocaine 4% Topical Sol 50 ML BOT TOP PRN (09:40)
[2018-11-29 12:16] LABS: Vancomycin, Trough 22.4 ug/mL
[2018-11-29 14:09] LABS: HCV log10 4.971 (.); Hep C PCR-Quant 93500 IU/mL (.)
[2018-11-29 15:13] VITALS: TEMP 98.2
--- NOTE | 2018-11-29 15:58 | PDOC.HOSPP ---
- Subjective Encounter Date: 11/29/18 Encounter Time: 13:00 Subjective: Mr. Monterroso was seen today in follow-up of abscess of the right calf. He notes pain when the wound was dressed, otherwise ok. - Objective Vital Signs & Weight: Vital Signs (12 hours) Temp Pulse Resp BP Pulse Ox 11/29/18 14:45 98.2 F 63 16 127/85 97 11/29/18 11:28 98.0 F 74 16 116/69 92 L 11/29/18 08:05 94 L 11/29/18 07:33 98.3 F 68 16 108/69 94 L 11/29/18 04:00 98.1 F 68 16 120/75 97 Weight Admit Weight 208 lb Weight 208 lb 14.4 oz I&O: 11/28/18 11/29/18 11/30/18 06:59 06:59 06:59 Intake Total 3940 3430 650 Output Total 3650 4000 Balance 290 -570 650 Result Diagrams: 11/29/18 03:48 11/29/18 03:48 Hospitalist ROS - Medication Medications: Active Medications Generic Name Dose Route Start Last Admin Trade Name Freq PRN Reason Stop Dose Admin Hydrocodone Bitart/Acetaminophen 2 tab 11/24/18 02:24 11/29/18 13:09 [place] 5/325 PO 2 tab Q4H PRN Administration Moderate to Severe Pain (6-10) Enoxaparin Sodium 40 mg 11/24/18 09:00 11/29/18 09:35 Lovenox SC 40 mg 0900 PAYAL Administration Lidocaine HCl 5 ml 11/25/18 17:02 11/29/18 09:40 Xylocaine 4% Topical Brinda TOP 1 applic TID PRN Administration Moderate to Severe Pain (6-10) Morphine Sulfate 2 mg 11/29/18 05:42 11/29/18 09:35 Morphine SLOW IVP 2 mg Q2H PRN Administration Pain Senna/Docusate Sodium 1 tab 11/24/18 21:00 11/29/18 09:35 Senokot S PO 1 tab BID PAYAL Administration Temazepam 30 mg 11/25/18 17:02 11/29/18 00:16 Restoril PO 30 mg HSPRN PRN Administration Insomnia - Exam Heart: RRR, no murmur, no gallops, no rubs, normal peripheral pulses Respiratory: CTAB, no wheezes, no rales, no ronchi, normal chest expansion Gastrointestinal: soft, non-tender, non-distended, normal bowel sounds, no palpable masses Extremities: 1+ LE edema (wound is dressed with wound vac) Hosp A/P (1) Cellulitis of right lower extremity Code(s): L03.115 - CELLULITIS OF RIGHT LOWER LIMB Status: Acute (2) H/O chronic hepatitis Code(s): Z87.19 - PERSONAL HISTORY OF OTHER DISEASES OF THE DIGESTIVE SYSTEM Status: Chronic - Plan * Cellulitis of the right lower extremity- due to MRSA- he has been cleared for discharge by Orthopedic Surgery, and ID * Will change his antibiotics to Doxycycline, and Rifampin * Stable to discharge to the [facility]
[2018-11-29] MEDS ORDERED: Vancomycin HCl 1.25 GM in Sodium Chloride 0.9% 250 ML 250 ML IVPB SCH (20:00)
[2018-11-29 20:50] VITALS: BP 153/91
--- NOTE | 2018-11-30 00:15 | DIS ---
DATE OF ADMISSION: 11/23/2018 DATE OF DISCHARGE: 11/29/2018 DISCHARGE DISPOSITION: To the [facility]. DISCHARGE DIAGNOSES: 1. Cellulitis and abscess of the right calf. 2. History of hepatitis C. DISCHARGE MEDICATIONS: Include doxycycline 100 mg p.o. twice a day for 2 weeks, as well as rifampin 300 mg twice daily for 2 weeks. IMAGING DONE DURING THE HOSPITAL STAY: The patient had a lower extremity venous Doppler, which was negative for DVT. The patient also had an I and D of the right calf abscess, as well as the application of a wound VAC. CODE STATUS: Full code. ALLERGIES: TO PENICILLIN. THE WOUND GREW METHICILLIN-RESISTANT STAPH AUREUS. HOSPITAL COURSE: Mr. Monterroso is a 43-year-old gentleman, who noticed a small pimple-like area on his calf. Over the course of the following days, it grew in size and then the day prior to admission, he had severe swelling and pain and redness of the area. He was [facility] by the [facility] to the hospital, where it was found he had an extensive abscess encompassing most of his calf. This was I and D'd, and a wound VAC was placed. The plan is to allow the area to close by secondary intention. The area once again is extremely large and it is expected that it would take quite some time for this to heal. He was placed on IV vancomycin until the white blood cell count normalized and he had no more fever. He was then discharged to be placed into the [facility], where this can be managed further in the correctional facility. Job ID: [id number]
--- NOTE | 2018-12-01 04:22 | PQF ---
SAP Ripsaw Operator Crystal Reports Winform Viewer SAMI LITTLE TONI MD [id number] [id number] CLINICAL DOCUMENTATION CLARIFICATION FORM: POST DISCHARGE Addendum to original discharge summary date: ____ Late entry note date: __ DATE: 12/01/18 ATTN: Augustin Burch Please exercise your independent, professional judgment in responding to the clarification form. Clinical indicators are provided on the bottom of this form for your review Can you please further specify if MRSA Sepsis is ruled in or ruled out? MRSA Sepsis [ X ] Ruled in diagnosis [ X Continue to treat [ ] Resolved [ ] Ruled out diagnosis [ ] Cannot rule out diagnosis [ ] Other diagnosis please specify [ ] Unable to determine In addition, please specify: Present on Admission (POA): [ X ] Yes [ ] No [ ] Unable to determine For continuity of documentation, please document condition throughout progress notes and discharge summary. Thank You. CLINICAL INDICATORS - SIGNS / SYMPTOMS / LABS H and P 11/23 pg.1Vital sign on presentation: Heart rate 99, respiratory rate 20 , Blood pressure 121/74, temperature 99.7 Consult 11/24 Dr. Morgan- Acute cellulitis right lower extremity with early blistering Hospitalist PN Dr. Cardenas 11/26 pg.4- Sepsis, Status: Acute, Sepsis type: methicillin resistant staphylococcus aureus PN 11/27 Dr. Morgan pg.1- Methicillin-resistant staphylococcus aureus abscess with cellulitis DS pg.1 11/29- Discharge diagnosis Cellulitis and abscess of the right calf RISK FACTORS Right lower extremity cellulitis- H and P 10/23 pg.2 Chronic Hepatitis C- Consult 11/24 Dr. Morgan pg.1 TREATMENTS Infectious Consult- Dr. Morgan 11/24 IV Fluids- MAY 14 Vascular Study 11/23 I and D- Operative report pg.1 11/27 Dr. Almonte Bacterial Culture- Microbiology 11/24 Clindamycin 600mg IV- MAY 14 Ceftriaxone 1gm IV- MAY 14 Vancomycin Hcl 1.5IV- MAY 14 (This form is maintained as a part of the permanent medical record) 2014 [employer] All Rights Reserved Martinez [email or web address] [not provided] MTDD
== END 2018-11-29 22:30 | DRG 854 ==
LOC: SURG A 20:19
PROVIDERS: ADMIT Family Medicine; ATTEND Family Medicine
PROC: 0J9N0ZZ Drainage of Right Lower Leg Subcutaneous Tissue and Fascia, Open Approach (ICD-10-PCS; principal; 2018-11-26)
DX: A41.02 Sepsis due to Methicillin resistant Staphylococcus aureus (principal); L03.115 Cellulitis of right lower limb; L02.415 Cutaneous abscess of right lower limb; D64.9 Anemia, unspecified; B18.2 Chronic viral hepatitis C; E66.9 Obesity, unspecified; Z68.33 Body mass index [BMI] 33.0-33.9, adult; Z88.0 Allergy status to penicillin; Z87.891 Personal history of nicotine dependence
CPT/HCPCS: 36415; 80048; 80053; 80074; 80202; 85007; 85025; 85027; 86140; 87040; 87070; 87077; 87186; 87205; 87522; J0131; J0696; J1100; J1650; J1885; J2001; J2270; J2405; J2704; J2765; J3010; J3370; J3490; J7050; S0028